=== PATIENT | female | born 1955 | race Caucasian/White ===

== ENCOUNTER → 2016-09-15 | Outpatient (CLI) | payer BC ==
[~2016-09-15] MED LIST: ALDACTONE25 MG PO; ALPRAZOLAM PO; ANORO ELLIPTA1 EACH INH; ASPIRIN PO; FAMOTIDINE PO; FLUOXETINE HCL20 M1 PO; HCTZ PO; KEFLEX250 M3 PO; LISINOPRIL PO; LOPRESSOR PO; PRILOSEC PO; PROZAC PO; TOPROL XL 50 MG50 MG PO; TOPROL XL PO; XANAX2 MG PO; ZOCOR PO
--- NOTE | ~2016-09-15 | US84 ---
[id number] [address] [id number] O MR#: [id number] Acc #: [id number] NAME: BENITA LUNA : 1955 SEX: F STUDY DATE/TIME: 09/15/2016 13:16 UNIT: [facility] ROOM: STUDY DESCRIPTION: US LE Veins Complete Peter Stdy Attending Physician: Saul Brannon M.D. Referring Physician: Saul Brannon M.D. Ordering Physician: Saul Brannon M.D. Primary Care Physician: Saul Brannon M.D. MEDICAL IMAGING REPORT This report is preliminary unless electronic signature is present. EXAM Bilateral lower extremity venous duplex 09/15/2016 HISTORY Bilateral lower extremity pain and swelling for 3 weeks. Evaluate for deep vein thrombosis. TECHNIQUE Venous ultrasound examination of both lower extremities was performed using grayscale, spectral Doppler and color flow Doppler imaging. FINDINGS The examination is negative. There is no evidence of deep venous thrombus from the groin to the lower calf bilaterally. Visualized greater saphenous veins are also patent. IMPRESSION Negative examination. No evidence of lower extremity DVT. Dictated by... Dennis Porras M.D. THIS IS AN ELECTRONICALLY VERIFIED REPORT Dennis Porras M.D. at 09/16/2016 7:55 AM Veena TD: 09/15/2016 15:45 JOB #: [id number] MEDICAL IMAGING REPORT Page 1 of 1
== END | disposition home or self-care (01) ==
LOC: SNIV 12:47
DX: M79.89 Other specified soft tissue disorders (principal); M79.604 Pain in right leg; M79.605 Pain in left leg
CPT/HCPCS: 93970

== ENCOUNTER → 2016-09-28 | Outpatient (CLI) | payer BC ==
--- NOTE | ~2016-09-28 | CR170 ---
[facility] A Service of [facility] & [facility] RADIOLOGY TEXT RESULTS PATIENT: BENITA LUNA LOCATION: [facility] : 57 UNIT #: [id number] AGE: [address]: Saul Brannon MD SEX: F ORDER DR: [id number] [address] [address] [id number] O MR#: [id number] Acc #: [id number] NAME: BENITA LUNA : 1955 SEX: F STUDY DATE/TIME: 09/28/2016 18:09 UNIT: [facility] ROOM: STUDY DESCRIPTION: CR Knee 2 Views Rt Attending Physician: Saul Brannon M.D. Referring Physician: Saul Brannon M.D. Ordering Physician: Saul Brannon M.D. Primary Care Physician: Saul Brannon M.D. MEDICAL IMAGING REPORT This report is preliminary unless electronic signature is present. EXAM Right knee series 09/28/2016 HISTORY Pain. Pain for 3 weeks. Swelling. FINDINGS AP and cross-table lateral views of the right knee are presented. No fracture or malalignment. The joint spaces are intact. Small joint effusion in suprapatellar recess. No soft tissue defect, subcutaneous air, or radiodense foreign body. Dictated by... Ranjan Garcia M.D. THIS IS AN ELECTRONICALLY VERIFIED REPORT Ranjan Garcia M.D. at 09/30/2016 11:32 PM SUDEEP/janell TD: 09/29/2016 12:17 JOB #: [id number] MEDICAL IMAGING REPORT Page 1 of 1
--- NOTE | ~2016-09-28 | CR253 ---
[facility]. [facility] A Service of [facility] & [facility] RADIOLOGY TEXT RESULTS PATIENT: BENITA LUNA LOCATION: [facility] : 57 UNIT #: [id number] AGE: [address]: Saul Brannon MD SEX: F ORDER DR: [id number] [address] [address] [id number] O MR#: [id number] Acc #: [id number] NAME: BENITA LUNA : 1955 SEX: F STUDY DATE/TIME: 09/28/2016 18:09 UNIT: [facility] ROOM: STUDY DESCRIPTION: CR Tibia and Fibula 2 Views Rt Attending Physician: Saul Brannon M.D. Referring Physician: Saul Brannon M.D. Ordering Physician: Saul Brannon M.D. Primary Care Physician: Saul Brannon M.D. MEDICAL IMAGING REPORT This report is preliminary unless electronic signature is present. EXAM Tibia-fibula series, 09/28/2016 HISTORY Pain and swelling for 3 weeks. Right leg. FINDINGS AP and lateral radiographs of the right tibia and fibula are presented. No fracture. No evidence of joint malalignment. Bony mineralization is normal. No soft tissue defect, subcutaneous or radiodense foreign body. Soft tissue calcification medial mid foreleg. Question soft tissue swelling circumferentially around the ankle. The appearance could simply be a reflection of the patient's body habitus. Correlate with clinical examination. Extrinsic indentation on soft tissues of distal foreleg and ankle favored to reflect clothing artifact. Dictated by... Ranjan Garcia M.D. THIS IS AN ELECTRONICALLY VERIFIED REPORT Ranjan Garcia M.D. at 09/30/2016 11:31 PM Stephanie TD: 09/29/2016 09:08 JOB #: [id number] MEDICAL IMAGING REPORT Page 1 of 1
== END | disposition home or self-care (01) ==
LOC: SRAD 17:39
DX: M25.561 Pain in right knee (principal); M79.661 Pain in right lower leg; M79.89 Other specified soft tissue disorders; M25.461 Effusion, right knee
CPT/HCPCS: 73560; 73590